=== PATIENT | female | born 1965 | race Caucasian/White ===

== ENCOUNTER 2021-07-23 15:47 | Outpatient (CLI) | payer BC ==
[2021-07-23 16:41] LABS: Mean Corpuscular HGB CONC 34.2 g/dL (32.0-36.0); Mean Corpuscular Hemoglobin 28.7 pg (27.0-33.0); Mean Corpuscular Volume 83.7 fl (81.6-98.3); Mean Platelet Volume 10.2 fl (7.4-10.4); Platelet Count 305 10x3/uL (150-450); RBC Distribution Width 13.1 % (11.5-14.5); Red Blood Cell (RBC) Count 5.23 10x6/uL (3.90-5.03); White Blood Cell (WBC) Count 8.2 10x3/uL (3.5-10.5)
[2021-07-23 16:56] LABS: Anion Gap 15 mmol/L (10-20); BUN (Urea Nitrogen) 21 mg/dL (9.8-20.1); Calc. Creatinine Clearance 0 mL/min (70-130); Calcium 9.7 mg/dL (7.8-10.44); Carbon Dioxide 26 mmol/L (22-29); Chloride 104 mmol/L (98-107); Glucose 108 mg/dL (70-105); Potassium 3.6 mmol/L (3.5-5.1)
[2021-07-23 17:19] LABS: Sodium 141 mmol/L (136-145)
[2021-07-24 00:19] LABS: SARS-CoV-2 PCR by NAA Not Detected (NotDetected)
== END 2021-07-23 15:48 | disposition home or self-care (01) ==
LOC: CSHLAB 15:47
PROVIDERS: ATTEND Surgery
DX: Z01.818 Encounter for other preprocedural examination (principal); Z20.822 Contact with and (suspected) exposure to COVID-19
CPT/HCPCS: 80048; 85027; 93005; 93010; U0003; U0005

== ENCOUNTER 2021-07-28 08:33 | Day surgery (SDC) | payer BC ==
[2021-07-27 13:46] VITALS: BMI 33.9
[2021-07-28] MEDS ORDERED: EPINEPHrine 1 MG/ML AMP ONE (11:22)
[2021-07-28] MEDS ORDERED: Bupivacaine PF 0.5% 30 ML VIAL ONE (11:23)
[2021-07-28] MEDS ORDERED: Metoclopramide HCl 10 MG/2 ML VIAL ONE (11:28)
[2021-07-28] MEDS ORDERED: Lidocaine 2% PF 5 ML VIAL ONE (11:28)
[2021-07-28] MEDS ORDERED: PROPOFOL 20 ML ONE (11:28)
[2021-07-28] MEDS ORDERED: Ondansetron PF 4 MG/2 ML Vial ONE (11:28)
[2021-07-28] MEDS ORDERED: Fentanyl 100 MCG/2 ML VIAL ONE ×2 (11:32→12:54)
[2021-07-28] MEDS ORDERED: Famotidine/PF 20 mg/2ml Vial ONE (11:38)
[2021-07-28] MEDS ORDERED: ceFAZolin 2 GM/Dextrose 50 ML IVPB ONE (11:39)
[2021-07-28] MEDS ORDERED: Midazolam HCl 2 mg/2 ml Vial ONE (11:47)
== END 2021-07-28 13:50 | disposition home or self-care (01) ==
LOC: CSHSDC 08:33
PROVIDERS: ATTEND Surgery
PROC: 03BS0ZX Excision of Right Temporal Artery, Open Approach, Diagnostic (ICD-10-PCS; principal; 2021-07-28)
DX: M31.6 Other giant cell arteritis (principal); I10 Essential (primary) hypertension; I25.10 Atherosclerotic heart disease of native coronary artery without angina pectoris; F17.210 Nicotine dependence, cigarettes, uncomplicated; Z79.899 Other long term (current) drug therapy; Z88.8 Allergy status to other drugs, medicaments and biological substances; Z88.5 Allergy status to narcotic agent
CPT/HCPCS: 88305; 88313; J0171; J0690; J2001; J2250; J2405; J2704; J2765; J3010; S0020; S0028